=== PATIENT | female | born 1990 | race Caucasian/White ===

== ENCOUNTER 2016-12-31 18:45 | Emergency (ER) | payer SELFPAY ==
[2016-12-31 18:48] VITALS: TEMP 99.8
[2016-12-31 19:22] VITALS: BMI 30.5
--- NOTE | 2016-12-31 19:46 | EDPRACDOC ---
- General Information Chief Complaint: Sore Throat Stated Complaint: FEVER SORE THROAT BODYACHES Time Seen by Provider: 12/31/16 19:41 Information Source: Patient Mode Of Arrival: Car Home Medications: Home Medications Ibuprofen Tablet [Motrin] 600 mg PO Q6H #30 tab 01/24/14 Hydrocodone Bit/Acetaminophen [Lortab 5/325] 1 tab PO Q4-6H PRN #15 tab Amoxicillin Trihydrate [Amoxicillin] 500 mg PO TID #30 tab 12/31/16 Ibuprofen Tablet [Motrin] 800 mg PO TID PRN #30 tab 12/31/16 Allergies/Adverse Reactions: Allergies Allergy/AdvReac Type Severity Reaction Status Date / Time No Known Allergies Allergy Verified 01/24/14 22:32 - History of Present Illness Onset: 1 DAY HPI: PT COMPLAINS OF SORE THROAT, COUGH, CONGESTION, HEADACHE, FEVER TO 101 AT HOME. Sore Throat Symptoms: Reports: Pain White Spots Location: Denies: Lips, Tongue, Buccal Membrane, Gingiva, Palate, Pharynx, Other Recent: Reports: None Relevant History of: Reports: None Pain Severity: Reports: Moderate Urinary Output: Normal Oral Intake: Normal Associated Signs and Symptoms: Reports: Fever, Cough, Nasal Symptoms ED Past Medical History - History Reviewed Yes Nurses notes reviewed and agree except as marked No Past Medical History: Yes Patient has no past medical history - Patient Medical History Psychological History: Denies: Depression - Social Medical History Smoking Status: Heavy tobacco smoker (5 or more cigarettes/day or daily pipe/ cigar) EDM Review of Systems - Review of Systems Constitutional: Fever. negative: Chills Eyes: negative: Blurred Vision, Double Vision Ears: negative: Drainage Throat: Pain Nose: Congestion. negative: Discharge Respiratory: Cough. negative: Shortness of Breath, Wheezing Gastrointestinal: Nausea, Vomiting Genitourinary: negative: Dysuria, Frequency Neurological: Headache - Physical Exam Constitutional: Alert (Awake), No apparent distress Oriented to: Time, Person, Place Last recorded Vital Signs: Last Vital Signs Temp 99.8 F 12/31/16 18:45 Pulse 113 12/31/16 18:45 Resp 18 12/31/16 18:45 BP 119/57 L 12/31/16 18:45 Pulse Ox 95 12/31/16 18:45 Oxygen Pulse Oxygen Saturation 95 O2 Device Oxygen Flow Rate Fraction of Inspired Oxygen ( FIO2) - HEENT Head: Normal ( normocephalic) Eye Exam: Normal (PERRL, EOMI, Sclera white) Oropharynx: Red. negative: Tonsillar Hypertrophy, [place] Tympanic Membrane: Normal ENT EAC: Normal TMJ: Normal Nose: No Symptoms Reported (septum midline) Neck: Lymphadenopathy - Respiratory/Cardiovascular Respiratory: Normal - CTA (BBS clear to auscultation without adventitious sounds ) Cardiovascular: Normal (RRR without murmur, gallop or rub) - Integumentary Skin: Normal, Warm, Dry Lymphatics: Normal (no adenopathy) - Neurologic Memory Impaired: Normal Motor Function: Normal (Normal tone, Pulses 2+ No cyanosis or edema, FROM) Cranial Nerve: Normal (CN II-X11 intact sensation, strength 5/5) Cerebellar: Normal Mood Description: Normal Perception: Normal - Differential Diagnosis Pharyngitis Streptococcal, Pharyngitis Viral Decision Time to Discharge: 19:46 - Departure Disposition: Home Condition: Stable Final Diagnosis: Acute pharyngitis Instructions: Pharyngitis (ED) Education/Counseling Given To: Patient Education/Counseling Given Regarding: Diagnosis, Treatment, Prognosis, Follow Up Referrals: Davi Black MD [Staff Physician] - One Week Prescriptions: New Amoxicillin Trihydrate [Amoxicillin] 500 mg PO TID #30 tab Ibuprofen Tablet [Motrin] 800 mg PO TID PRN #30 tab PRN Reason: Pain No Action Ibuprofen Tablet [Motrin] 600 mg PO Q6H #30 tab Hydrocodone Bit/Acetaminophen [Lortab 5/325] 1 tab PO Q4-6H PRN #15 tab PRN Reason: Pain Forms: Excuse Note Additional Instructions: REST, DRINK PLENTY OF FLUIDS, RETURN TO THE ED FOR ANY WORSENING SYMPTOMS OR CONCERNS.
[2016-12-31 19:57] VITALS: BP 122/63; PULSE 106
== END 2016-12-31 19:54 | disposition home or self-care (01) ==
LOC: EDMC 18:45
DX: J02.9 Acute pharyngitis, unspecified (principal); F17.200 Nicotine dependence, unspecified, uncomplicated
CPT/HCPCS: 99282